=== PATIENT | female | born 1970 | race African-American/Black ===

== ENCOUNTER 2016-12-10 13:52 | Emergency (ER) | payer OTHER ==
[2016-12-10 14:10] VITALS: BP 189/126; PULSE 74; TEMP 97.5; BMI 50.3
--- NOTE | 2016-12-10 15:19 | PDOC ---
History of Present Illness - General Chief Complaint: Sore Throat Stated Complaint: SORE THROAT Time Seen by Provider: 12/10/16 14:20 - History of Present Illness Initial Comments: 12/10/16 14:58 CHIEF COMPLAINT: throat pain HISTORY OF PRESENT ILLNESS: 46-year-old female with history of asthma and hypertension presents to [facility] with throat pain 1 month. Patient states that he was started on hydrochlorothiazide a month ago by her primary care doctor and then was seen at [facility] 2 days ago for this sore throat. Patient states she was swabbed for strep and was told that she would be called if the results were positive; the patient did not receive a call. Patient also states that she was seen by her dentist 2 days ago after "getting work done "and was prescribed penicillin 3 times daily for 1 week. Patient states that she does not have any difficulty speaking or breathing" but she feels irritation to her throat after swallowing pills. She denies any fever, chills, nausea, vomiting, diarrhea. No recent travel or sick contacts. PAST MEDICAL HISTORY: Denies past medical history FAMILY HISTORY: Denies SOCIAL HISTORY: Former smoker. Denies alcohol, illicit drug use. SURGICAL HISTORY: Denies ALLERGIES: No known drug allergies REVIEW OF SYSTEMS General/Constitutional: Denies fever or chills. Denies weakness, weight change. HEENT: "My throat feels irritated after swallowing pills." Denies change in vision. Denies ear pain or discharge. Cardiovascular: Denies chest pain or shortness of breath. Respiratory: Denies cough, wheezing, or hemoptysis. Gastrointestinal: Denies nausea, vomiting, diarrhea or constipation. Denies rectal bleeding. Genitourinary: Denies dysuria, frequency, or change in urination. Musculoskeletal: Denies joint or muscle swelling or pain. Denies neck or back pain. Skin and breasts: Denies rash or easy bruising. PHYSICAL EXAM General Appearance: Well-appearing, appropriately dressed. No apparent distress. HEENT: No swelling or erythema to pharynx, tonsils, uvula, lips, tongue, mouth. EOMI, PERRLA, normal ENT inspection, normal voice, TMs normal, pharynx normal. No conjunctival pallor. No photophobia, scleral icterus. Neck: Supple. Trachea midline. No tenderness, rigidity, carotid bruit, stridor , lymphadenopathy, or thyromegaly. Respiratory/Chest: Lungs CTAB. Cardiovascular: RRR. S1, S2. Musculoskeletal/Extremities: Normal inspection. FROM of all extremities, normal capillary refill. Integumentary: Appropriate color, dry, warm. No cyanosis, erythema, jaundice or rash Neurologic: business controller II-XII intact. Fully oriented, alert. Appropriate mood/affect. No appreciable EOM palsy, facial droop or sensory deficit. Past History - Past Medical History Allergies/Adverse Reactions: Allergies Allergy/AdvReac Type Severity Reaction Status Date / Time No Known Allergies Allergy Verified 12/10/16 14:02 Home Medications: Ambulatory Orders Hydrochlorothiazide [Hctz -] 12.5 mg PO DAILY 12/10/16 Asthma: Yes HTN: Yes - Psycho/Social/Smoking Cessation Hx Suicidal Ideation: No Smoking History: Former smoker Have you smoked in the past 12 months: No Information on smoking cessation initiated: No *Physical Exam - Vital Signs Last Vital Signs Temp Pulse Resp BP Pulse Ox 97.5 F L 74 19 189/126 98 12/10/16 14:02 12/10/16 14:02 12/10/16 14:02 12/10/16 14:02 12/10/16 14:02 Medical Decision Making - Medical Decision Making 12/10/16 15:02 46-year-old female with history of asthma and hypertension presents to [facility] with throat irritation 1 month. Patient was swabbed for strep at [facility] and is currently taking PCN 500 mg TID. Discussed with patient that she has elevated BP; patient states "that's because I don't like hospitals and I always get really nervous when I come here. I also did not take my medication this morning." Reassured patient that it will take a few days for medication to start working and that temporary discomfort to throat s/p taking pills is common and not harmful. Advised patient to continue taking medications, follow up with PMD this week for further management of HTN, and advised patient of signs and symptoms for return to ER. Patient verbalized understanding and agrees to plan. *DC/Admit/Observation/Transfer Diagnosis at time of Disposition: Throat discomfort Hypertension Qualifiers: Hypertension type: unspecified secondary hypertension Qualified Code(s): I15.9 - Secondary hypertension, unspecified; I15 - Secondary hypertension - Discharge Dispostion Disposition: HOME Condition at time of disposition: Stable Admit: No - Referrals Referrals: Alfredito Cnadelaria MD [Staff Physician] - - Patient Instructions Printed Discharge Instructions: Sore Throat, High Blood Pressure Additional Instructions: Please continue taking your antibiotics as prescribed. You may take ibuprofen as directed by your dentist for fever or discomfort. You have been provided a referral to ear, nose, and throat doctor, please make an appointment for this week for further evaluation your throat discomfort continues. You MUST see your primary care doctor in the next week for further evaluation and management of your blood pressure. As discussed, if you develop any difficulty speaking, swallowing, breathing, or swelling of the lips, mouth, throat, tongue, or any new or worsening symptoms, please return to the ER immediately.
== END 2016-12-10 15:25 | disposition home or self-care (01) ==
LOC: JERFT 13:52
DX: R07.0 Pain in throat (principal); I10 Essential (primary) hypertension; J45.909 Unspecified asthma, uncomplicated
CPT/HCPCS: 99281-25

== ENCOUNTER 2017-01-16 06:48 | Emergency (ER) | payer OTHER ==
[2017-01-16 07:03] VITALS: TEMP 97.4; BMI 50.0
--- NOTE | 2017-01-16 07:39 | PDOC ---
History of Present Illness - General Chief Complaint: Asthma Stated Complaint: ASTHMA Time Seen by Provider: 01/16/17 07:26 History Source: Patient Exam Limitations: No Limitations - History of Present Illness Initial Comments: 46 AA F with h/o asthma never intubated not on steroid and HTN on HCTZ presented to the ED with cold symptoms x 1 week. She was seen at [facility] and was treated with duoneb and prednisone but symptoms still persist, which include productive cough with white sputum, throat pain, abd muscle pain and shortness of breath at times. Her kids at home also have similar symptoms. But patient denies recent travel, fever, chills, chest pain, n/v, headache, diarrhea , dysuria. Timing/Duration: reports: intermittent Severity: reports: mild Modifying Factors: improves with: albuterol nebulizer Associated Symptoms: reports: cough, muscle aches, shortness of breath, sore throat. denies: fever/chills Past History - Travel Traveled outside of the country in the last 30 days: No Close contact w/someone who was outside of country & ill: No - Past Medical History Allergies/Adverse Reactions: Allergies Allergy/AdvReac Type Severity Reaction Status Date / Time No Known Allergies Allergy Verified 01/16/17 07:01 Home Medications: Ambulatory Orders Hydrochlorothiazide [Hctz -] 12.5 mg PO DAILY 12/10/16 Prednisone [Deltasone -] 60 mg PO DAILY #5 tablet 01/16/17 Asthma: Yes HTN: Yes - Psycho/Social/Smoking Cessation Hx Suicidal Ideation: No Smoking History: Never smoked Have you smoked in the past 12 months: No Information on smoking cessation initiated: No Hx Alcohol Use: No Drug/Substance Use Hx: No Substance Use Type: None Review of Systems - Review of Systems Able to Perform ROS?: Yes Is the patient limited Palestinian proficient: No Constitutional: No: Chills, Fever HEENTM: Yes: Throat Pain. No: Ear Discharge Respiratory: Yes: Cough, Shortness of Breath, Productive cough Cardiac (ROS): No: Chest Pain ABD/GI: No: Abdominal Distended, Constipated, Diarrhea, Nausea, Vomiting : No: Dysuria Musculoskeletal: Yes: Muscle Pain *Physical Exam - Vital Signs Last Vital Signs Temp Pulse Resp BP Pulse Ox 97.4 F L 98 H 18 162/99 100 01/16/17 07:02 01/16/17 07:02 01/16/17 07:02 01/16/17 07:02 01/16/17 07:15 - Physical Exam General Appearance: No: Apparent Distress HEENT: negative: Pale Conjunctivae, Pharyngeal Erythema, Tonsillar Exudate, Tonsillar Erythema, Nasal Congestion, Sinus Tenderness Neck: positive: Trachea midline, Supple Respiratory/Chest: positive: Lungs Clear, Normal Breath Sounds. negative: Crackles, Rales, Rhonchi, Wheezing Cardiovascular: positive: Regular Rhythm, S1, S2, Tachycardia Gastrointestinal/Abdominal: positive: Soft. negative: Tender, Distended, Guarding, Rebound, Tenderness Extremity: negative: Tender, Swelling Medical Decision Making - Medical Decision Making 01/16/17 07:49 Likely bronchitis upon assessment. Will give 2 duoneb treatment and predisone in ED 01/16/17 09:39 EKG is unremarkable, patient is feeling better, will discharge the patient with predisone 60mg x 5 days *DC/Admit/Observation/Transfer Diagnosis at time of Disposition: Bronchitis - Discharge Dispostion Disposition: HOME Condition at time of disposition: Stable Admit: No - Prescriptions Prescriptions: Prednisone [Deltasone -] 60 mg PO DAILY #5 tablet - Referrals Referrals: Rosalinda Guerra [Primary Care Provider] - - Patient Instructions Printed Discharge Instructions: Asthma -- Adult, DI for Chronic Bronchitis Additional Instructions: Please take predisone as instructed and continue to use albuterol as needed for your asthma. Visit the nearest Emergency Room if the symptoms worsen. - Post Discharge Activity Work/School Note: Back to Work
[2017-01-16] MEDS ORDERED: predniSONE 20 MG TABLET (UD) PO ONE (07:45)
[2017-01-16] MEDS ORDERED: ALBUTEROL SO4 2.5/IPRATROPIUM 0.5 INH SOL 3 ML VIAL.NEB. NEB ONE ×2 (07:53→08:43)
[2017-01-16] MEDS: ALBUTEROL SO4 2.5/IPRATROPIUM 0.5 INH SOL 3 ML VIAL.NEB. NEB SCH ×2 (08:00→08:42)
--- NOTE | 2017-01-16 08:54 | PDOC ---
Attending Attestation - Resident Resident Name: Dominic Bedoya - ED Attending Attestation I have performed the following: I have examined & evaluated the patient, The case was reviewed & discussed with the resident, I agree w/resident's findings & plan, Exceptions are as noted - HPI HPI: 01/16/17 08:54 46-year-old female with history of mild intermittent asthma presents for evaluation of persistent cough for the last week. Positive nasal and chest congestion with cough productive of white phlegm, no fevers or chills. Was seen at [facility] ER last week, a chest x-ray was reportedly normal and she was given nebulizers and steroids with a prescription upon discharge but the pharmacy never received it so she presents for reevaluation. - Physicial Exam PE: 01/16/17 08:55 Afebrile. O2 sat normal. Well-appearing. Occasional expiratory wheeze only with cough, otherwise good air entry without inspiratory or expiratory wheezing or prolonged expiration. No leg edema - Medical Decision Making 01/16/17 08:56 Patient seen and evaluated with the resident. I agree with the overall evaluation, assessment, and management with the following summary of visit: 46-year-old female with likely viral bronchitis, mild asthma exacerbation. Recently normal chest x-ray, low suspicion for pneumonia given one week of symptoms and no fever. no indication for repeat CXR trial of nebulizer, will benefit from course of steroids so will resend to the pharmacy well appearing without respiratory distress, anticipate discharge. Heart Score/ECG Review #1 General ECG Interpretation: Sinus Rhythm, Normal Rate, Normal Intervals, No acute ischemic changes
[2017-01-16 09:47] VITALS: BP 150/80; PULSE 80
--- NOTE | 2017-01-16 15:06 | EKG ---
Test Reason : Blood Pressure : / mmHG Vent. Rate : 084 BPM Atrial Rate : 084 BPM P-R Int : 142 ms QRS Dur : 078 ms QT Int : 376 ms P-R-T Axes : 061 049 031 degrees QTc Int : 444 ms NORMAL SINUS RHYTHM WITH SINUS ARRHYTHMIA NORMAL ECG NO PREVIOUS ECGS AVAILABLE Confirmed by TANI BADILLO MD ([id number]) on 01/16/2017 3:05:28 PM Referred By: Confirmed By:TANI BADILLO MD
== END 2017-01-16 09:48 | disposition home or self-care (01) ==
LOC: JER 06:48
PROC: 3E0F7GC Introduction of Other Therapeutic Substance into Respiratory Tract, Via Natural or Artificial Opening (ICD-10-PCS; principal; 2017-01-16)
DX: J40 Bronchitis, not specified as acute or chronic (principal); J45.909 Unspecified asthma, uncomplicated; I10 Essential (primary) hypertension
CPT/HCPCS: 93005; 93010; 99283-25

== ENCOUNTER 2017-03-19 07:25 | Emergency (ER) | payer OTHER ==
[2017-03-19 07:45] VITALS: BP 150/86; PULSE 86; TEMP 99.1
--- NOTE | 2017-03-19 08:51 | PDOC ---
History of Present Illness - General Chief Complaint: Sore Throat Stated Complaint: SORE THROAT, TOOTHACHE Time Seen by Provider: 03/19/17 08:08 History Source: Patient Exam Limitations: No Limitations - History of Present Illness Initial Comments: 03/19/17 08:37 My chief complaint: Sore throat, toothache History of present illness: Patient is a 46-year-old female with a history of hypertension/asthma here today complaining of a sore throat 2 days and upper tooth discomfort and dry cough. Patient reports that she supposed to have some dental work on her left upper molar teeth. Patient does not have any facial swelling. Patient reports that her children have been sick with sore throat and cough. Patient denies any difficulty breathing or swallowing. Patient denies any nausea vomiting or diarrhea. Pt. reports discomfort left upper teeth discomfort, does now want anything for pain presently. 03/19/17 09:01 03/19/17 09:19 Timing/Duration: getting worse Severity: mild Associated Symptoms: reports: cough (dry ), other (sore throat, cough, left upper teeth discomfort) Past History - Past Medical History Allergies/Adverse Reactions: Allergies Allergy/AdvReac Type Severity Reaction Status Date / Time amoxicillin AdvReac Verified 03/19/17 07:34 Home Medications: Ambulatory Orders Azithromycin [Zithromax 250mg Tablets -] 250 mg PO UTDICT #6 tab 03/19/17 Guaifenesin Dm [Mucinex Dm -] 1 - 2 tablet PO Q12H PRN #20 tab.er.12h MDD 4 Ibuprofen 600 mg PO Q6H PRN #18 tablet MDD 4 03/19/17 Asthma: Yes HTN: Yes - Psycho/Social/Smoking Cessation Hx Anxiety: No Suicidal Ideation: No Smoking History: Never smoked Have you smoked in the past 12 months: No Hx Alcohol Use: No Drug/Substance Use Hx: No Substance Use Type: None Review of Systems - Review of Systems Able to Perform ROS?: Yes Constitutional: No: Symptoms Reported HEENTM: Yes: Throat Pain, Dental Problems (left upper molar discomfort ) Respiratory: Yes: Cough. No: Shortness of Breath, SOB with Exertion, SOB at Rest, Stridor, Wheezing, Productive cough Cardiac (ROS): No: Symptoms Reported Musculoskeletal: No: Symptoms Reported Integumentary: No: Symptoms Reported Neurological: No: Symptoms reported *Physical Exam - Vital Signs Last Vital Signs Temp Pulse Resp BP Pulse Ox 99.1 F 86 20 150/86 100 03/19/17 07:30 03/19/17 07:30 03/19/17 07:30 03/19/17 07:30 03/19/17 07:30 - Physical Exam General Appearance: Yes: Appropriately Dressed HEENT: positive: TMs Normal, Pharyngeal Erythema, Tonsillar Erythema (with no uvular deviation ), Other (no surrounding edema of gum left upper molar, some discomfort when tapping teeth with tongue blade). negative: Tonsillar Exudate Neck: negative: Lymphadenopathy (R), Lymphadenopathy (L), Rigidity Respiratory/Chest: positive: Lungs Clear, Normal Breath Sounds. negative: Respiratory Distress Cardiovascular: positive: Regular Rhythm, Regular Rate, S1, S2 Integumentary: positive: Normal Color Neurologic: positive: Alert, Normal Response, Responsive Medical Decision Making - Medical Decision Making 03/19/17 09:04 Patient is a 46-year-old female with a history of hypertension/asthma here today complaining of a sore throat 2 days and upper tooth discomfort and dry cough. Patient reports that she supposed to have some dental work on her left upper molar teeth. Patient does not have any facial swelling. Patient reports that her children have been sick with sore throat and cough. Patient denies any difficulty breathing or swallowing. Patient denies any nausea vomiting or diarrhea. Pt. reports discomfort left upper teeth discomfort, does now want anything for pain presently. Left upper teeth discomfort pharyngitis cough PLAN: throat C & S negative azithromycin 250 mg 2 tabs today than one daily for following 4 days Mucinex DM 1 -2 tabs q 12 hr prn cough Ibuprofen 600 mg po every 6 hrs prn pain 03/19/17 09:20 *DC/Admit/Observation/Transfer Diagnosis at time of Disposition: Pain due to dental caries, Cough Pharyngitis Qualifiers: Pharyngitis/tonsillitis etiology: unspecified etiology Qualified Code(s): J02.9 - Acute pharyngitis, unspecified - Discharge Dispostion Disposition: HOME Condition at time of disposition: Stable - Prescriptions Prescriptions: Ibuprofen 600 mg PO Q6H PRN #18 tablet MDD 4 PRN Reason: Pain Guaifenesin Dm [Mucinex Dm -] 1 - 2 tablet PO Q12H PRN #20 tab.er.12h MDD 4 PRN Reason: Cough Azithromycin [Zithromax 250mg Tablets -] 250 mg PO UTDICT #6 tab - Referrals Referrals: Rosalinda Guerra [Primary Care Provider] - - Patient Instructions Additional Instructions: Follow up with your dentist this week or go to [employer] [facility] for sure given to you has full information Return to emergency room if symptoms worsen any difficulty swallowing or breathing Follow Up with your primary care provider within the next few days for follow-up Rest and drink a lot a fluids Avoid extremely hot or cold foods Patient voiced understanding of discharge instructions and all questions were answered
== END 2017-03-19 09:47 | disposition home or self-care (01) ==
LOC: JER 07:25 → JERFT 07:25
DX: J02.9 Acute pharyngitis, unspecified (principal); K02.9 Dental caries, unspecified; I10 Essential (primary) hypertension; J45.909 Unspecified asthma, uncomplicated
CPT/HCPCS: 87070; 87430; 99281-25

== ENCOUNTER 2017-04-02 05:07 | Emergency (ER) | payer OTHER ==
[2017-04-02 05:34] VITALS: BP 125/78; PULSE 85; TEMP 97.8; BMI 49.5
--- NOTE | 2017-04-02 05:49 | PDOC ---
History of Present Illness - General Chief Complaint: Vaginal Sxs Stated Complaint: VAGINAL ITCHING Time Seen by Provider: 04/02/17 05:24 History Source: Patient Exam Limitations: No Limitations - History of Present Illness Travel History: No Initial Comments: 04/02/17 05:44 46yo Female patient w/ PmHx: HTN, Asthma presents to ED c/o vaginal itching with white discharge. Patient states 1 week ago she changed her laundry detergent, 3 days later she began experiencing irritation in vaginal area. Patient denies urinary symptoms, fever, n/v/d, DM, or any other complaints at this time. Timing/Duration: reports: getting worse Quality: reports: moderate Abdominal Pain Onset Location: denies: RUQ, LUQ, RLQ, LLQ, epigastric, periumbilical, suprapubic, generalized abdomen, flank, unknown, other Pain Radiation: denies: no radiation, RUQ, LUQ, RLQ, LLQ, epigastric, periumbilical, flank, groin, scapula, shoulder, chest, back, other Activities at Onset: denies: none, exertion, emotional upset, rest, sleep, no specific activity, eating, working, sexual intercourse, other Treatment Prior to Arrive: worse with: analgesics, antacids, cold pack, heat, laxative, enema, other Aggravating Factors: worse with: None, Defecation, Eating, Emotional upset, Exertion, [place], Movement, Voiding, Change in position Alleviating Factors: worse with: None, Belching, Shallow Breathing, Defecation, Eating, Holding Breath, Passing Gas, Change in Position, Rest, Voiding, Vomiting Past History - Travel Traveled outside of the country in the last 30 days: No Close contact w/someone who was outside of country & ill: No - Past Medical History Allergies/Adverse Reactions: Allergies Allergy/AdvReac Type Severity Reaction Status Date / Time amoxicillin AdvReac Verified 04/02/17 05:28 Home Medications: Ambulatory Orders Albuterol 0.083% Nebulizer Alanis [Ventolin 0.083%] 1 neb NEB QID PRN 04/02/17 Cephalexin Monohydrate [Keflex -] 500 mg PO BID #20 capsule 04/02/17 Fluconazole [Diflucan -] 50 mg PO ONCE #1 tablet 04/02/17 Fluconazole [Diflucan -] 100 mg PO ONCE #1 tablet 04/02/17 Hydrochlorothiazide [Hctz -] 12.5 mg PO DAILY 04/02/17 Asthma: Yes HTN: Yes - Psycho/Social/Smoking Cessation Hx Anxiety: No Suicidal Ideation: No Smoking History: Never smoked Have you smoked in the past 12 months: No Information on smoking cessation initiated: No Hx Alcohol Use: No Drug/Substance Use Hx: No Substance Use Type: None Abd/GI Specific PMHX - Complaint Specific PMHX Colitis: No Diverticulitis: No Gall Bladder Disease: No GERD: No Hepatitis: No Irritable Bowel Synd (IBS): No Pancreatitis: No GI Ulcer Disease: No Review of Systems - Review of Systems Able to Perform ROS?: Yes Is the patient limited Syrian proficient: No Constitutional: No: Chills, Fever Respiratory: No: Cough, Shortness of Breath, Stridor, Wheezing Cardiac (ROS): No: Chest Pain, Palpitations, Syncope ABD/GI: No: Constipated, Diarrhea, Nausea, Poor Appetite, Poor Fluid Intake, Vomiting, Abdominal cramping : Yes: Discharge, Other (Vaginal itching). No: Burning, Dysuria, Frequency, Hematuria, Pain, Urgency Musculoskeletal: No: Back Pain Integumentary: No: Bruising, Dryness, Erythema, Rash All Other Systems: Reviewed and Negative *Physical Exam - Vital Signs Last Vital Signs Temp Pulse Resp BP Pulse Ox 97.8 F 85 18 125/78 98 04/02/17 05:26 04/02/17 05:26 04/02/17 05:26 04/02/17 05:26 04/02/17 05:26 - Physical Exam General Appearance: Yes: Nourished, Appropriately Dressed. No: Apparent Distress, Mild Distress, Moderate Distress, Severe Distress Neck: positive: Trachea midline, Supple. negative: Stridor, Lymphadenopathy (R) , Lymphadenopathy (L) Respiratory/Chest: positive: Lungs Clear, Normal Breath Sounds. negative: Chest Tender, Respiratory Distress, Accessory Muscle Use, Labored Respiration, Rapid RR Cardiovascular: positive: Regular Rhythm, Regular Rate Female Pelvic Exam: positive: other (Patient deferred) Gastrointestinal/Abdominal: positive: Normal Bowel Sounds, Soft. negative: Distended, Guarding, Rebound, Tenderness Musculoskeletal: positive: Normal Inspection. negative: CVA Tenderness Extremity: positive: Normal Capillary Refill, Normal Inspection, Normal Range of Motion. negative: Pedal Edema, Swelling, Calf Tenderness, Erythema Integumentary: positive: Normal Color, Dry, Warm Neurologic: positive: hand mexican food maker II-XII NML intact, Fully Oriented, Alert, Normal Mood/ Affect, Normal Response, Motor Strength 5/5 *DC/Admit/Observation/Transfer Diagnosis at time of Disposition: Infection due to yeast Urinary tract infection Qualifiers: Urinary tract infection type: urethritis Qualified Code(s): N34.2 - Other urethritis - Discharge Dispostion Disposition: HOME Condition at time of disposition: Fair Admit: No - Prescriptions Prescriptions: Fluconazole [Diflucan -] 100 mg PO ONCE #1 tablet Fluconazole [Diflucan -] 50 mg PO ONCE #1 tablet Cephalexin Monohydrate [Keflex -] 500 mg PO BID #20 capsule - Patient Instructions Printed Discharge Instructions: Urinary Tract Infection, DI for Vaginal Yeast Infection Additional Instructions: FOLLOW UP WITH YOUR PRIMARY CARE PROVIDER. TAKE MEDICATIONS PRESCRIBED. YOU HAVE BEEN PROVIDED WITH AN EXTRA DOSE OF DIFLUCAN FOR YEAST INFECTION IF SYMPTOMS DO NOT SUBSIDED. IF YOU COMPLETE ALL MEDICATIONS AND SYMPTOMS CONTINUE OR GET WORSE DURING TREATMENT, RETURN FOR FURTHER EVALUATION. Print Language: INDONESIAN
[2017-04-02 06:05] LABS: URINE APPEARANCE SLCLOUDY; URINE BILIRUBIN NEGATIVE (NEGATIVE); URINE BLOOD NEGATIVE (NEGATIVE); URINE COLOR YELLOW; URINE GLUCOSE (UA) NEGATIVE (NEGATIVE); URINE KETONE NEGATIVE (NEGATIVE); URINE NITRITE NEGATIVE (NEGATIVE); URINE PROTEIN NEGATIVE (NEGATIVE); URINE UROBILINOGEN 2.0 E.U/dl E.U./dl (0.2-1.0)
[2017-04-02 06:16] LABS: URINE LEUK ESTERASE 3+ (NEGATIVE)
[2017-04-02 06:22] LABS: URINE BACTERIA RARE /hpf (NONE SEEN); URINE HYALINE CAST 1 /lpf; URINE MUCUS RARE; URINE RBC 1 /hpf (0-3); URINE WBC 4 /hpf (3-5)
[2017-04-02] MEDS ORDERED: FLUCONAZOLE 100 MG TABLET (UD) PO ONE (06:24)
[2017-04-02] MEDS ORDERED: CEPHALEXIN MONOHYDRATE 500 MG CAPSULE (UD) PO ONE (06:24)
[2017-04-02] MEDS ORDERED: FLUCONAZOLE 100 MG TABLET (UD) ONE (06:34)
[2017-04-02] MEDS ORDERED: CEPHALEXIN MONOHYDRATE 250 MG CAPSULE (FP) ONE (06:34)
== END 2017-04-02 06:29 | disposition home or self-care (01) ==
LOC: JER 05:07
DX: B37.3 Candidiasis of vulva and vagina (principal); N34.2 Other urethritis; I10 Essential (primary) hypertension; J45.909 Unspecified asthma, uncomplicated
CPT/HCPCS: 81003; 81015; 84703; 87086; 99281-25

== ENCOUNTER 2017-04-22 09:04 | Emergency (ER) | payer OTHER ==
[2017-04-22 09:13] VITALS: BP 161/94; PULSE 79; TEMP 98.5; BMI 48.6
--- NOTE | 2017-04-22 09:35 | PDOC ---
History of Present Illness - General Chief Complaint: Toothache Stated Complaint: TOOTHACHE Time Seen by Provider: 04/22/17 09:18 History Source: Patient Exam Limitations: No Limitations - History of Present Illness Initial Comments: 04/22/17 09:35 Patient is a 46-year-old female history of hypertension and asthma currently on hydrochlorothiazide and Ventolin as needed presents emergency Department with pain to left third of the molar. Patient reports that she has been getting dental work done, went to complete the work and found that the dentist had closed down went to another dentist who states he cannot continue work because the other dentists was already paid for by her insurance. Patient states the dentist informed her to come to emergency department for pain medication and antibiotics for her dental pain. Allergies: Amlodipine, amoxicillin Medications: See medication list Family History: Non-contributory Social History: Denies smoking, alcohol use, or IVDU Review of Systems GENERAL/CONSTITUTIONAL: No fever or chills. No weakness. No weight change. HEAD, EYES, EARS, NOSE AND THROAT: No change in vision. No ear pain or discharge. No sore throat. Pain to the gumline of the left upper third molar CARDIOVASCULAR: No chest pain or shortness of breath. RESPIRATORY: No cough, wheezing, or hemoptysis. GASTROINTESTINAL: No nausea, vomiting, diarrhea or constipation. No rectal bleeding. GENITOURINARY: No dysuria, frequency, or change in urination. MUSCULOSKELETAL: No joint or muscle swelling or pain. No neck or back pain. SKIN : No rash or easy bruising. NEUROLOGIC: No headache, vertigo, loss of consciousness, or loss of sensation. HEMATOLOGIC/LYMPHATIC: No anemia, easy bleeding, or history of blood clots. No lymphadenopathy ALLERGIC/IMMUNOLOGIC: No hives or skin allergy. No latex allergy. Physical Exam: GENERAL: The patient is awake, alert, and fully oriented, in no acute distress. HEAD: Normal with no signs of trauma. No facial swelling. EYES: Pupils equal, round and reactive to light, extraocular movements intact, sclera anicteric, conjunctiva clear. ENT: Ears normal, nares patent, oropharynx clear without exudates. Moist mucous membranes. No uvula deviation. No erythema, or edema to the gumline of the left third upper molar. No visible abscess. NECK: Normal range of motion, supple without lymphadenopathy, JVD, or masses. LUNGS: Breath sounds equal, clear to auscultation bilaterally. No wheezes, and no crackles. HEART: Regular rate and rhythm, normal S1 and S2 without murmur, rub or gallop. ABDOMEN: Soft, nontender, normoactive bowel sounds. No guarding, no rebound. No masses. No bruising or abrasions MUSCULOSKELETAL: Normal range of motion, no edema. No clubbing or cyanosis. No cords, erythema, or tenderness. No CVA Tenderness with fist. NEUROLOGICAL: Cranial nerves II through XII grossly intact. Normal speech, normal gait. SKIN: Warm, Dry, normal turgor, no rashes or lesions noted. No erythema or edema. Past History - Past Medical History Allergies/Adverse Reactions: Allergies Allergy/AdvReac Type Severity Reaction Status Date / Time amlodipine Allergy Intermediate Difficulty Verified 04/22/17 09:08 Breathing amoxicillin AdvReac Verified 04/22/17 09:07 Home Medications: Ambulatory Orders Hydrochlorothiazide [Hctz -] 12.5 mg PO DAILY 04/02/17 Albuterol Sulfate Inhaler - [Ventolin HFA Inhaler -] 2 inh PO Q6H PRN 04/22/17 Clindamycin [Cleocin -] 300 mg PO TID #21 capsule 04/22/17 Oxycodone HCl/Acetaminophen [Percocet 5-325 mg Tablet] 1 tab PO Q6H #16 tablet MDD 4 04/22/17 Salmeterol/Fluticasone [Advair 500Mcg/50Mcg -] 1 inh PO BID 04/22/17 Asthma: Yes HTN: Yes - Psycho/Social/Smoking Cessation Hx Anxiety: No Suicidal Ideation: No Smoking History: Never smoked Have you smoked in the past 12 months: No Hx Alcohol Use: No Drug/Substance Use Hx: No Substance Use Type: None *Physical Exam - Vital Signs Last Vital Signs Temp Pulse Resp BP Pulse Ox 98.5 F 79 17 161/94 98 04/22/17 09:08 04/22/17 09:08 04/22/17 09:08 04/22/17 09:08 04/22/17 09:08 Medical Decision Making - Medical Decision Making 04/22/17 09:41 A/P: Patient with dental pain. Because patient has been having dental work performed and is unable to complete it, patient at high risk for abscess development, there is no visible abscess however patient with subjective pain and states that recommend antibiotics at this time. Will DC patient on clindamycin and Percocet as needed for pain, strict follow-up with dental patient states she has to call her insurance because there are refusing to pay for completion of dental work. Patient will follow-up. *DC/Admit/Observation/Transfer Diagnosis at time of Disposition: Pain, dental - Discharge Dispostion Disposition: HOME Condition at time of disposition: Good Admit: No - Prescriptions Prescriptions: Clindamycin [Cleocin -] 300 mg PO TID #21 capsule Oxycodone HCl/Acetaminophen [Percocet 5-325 mg Tablet] 1 tab PO Q6H #16 tablet MDD 4 - Referrals Referrals: Nyla Guidry NP [Primary Care Provider] - - Patient Instructions - Post Discharge Activity
== END 2017-04-22 09:49 | disposition home or self-care (01) ==
LOC: JERFT 09:04
DX: K08.89 Other specified disorders of teeth and supporting structures (principal); I10 Essential (primary) hypertension; J45.909 Unspecified asthma, uncomplicated
CPT/HCPCS: 99281-25

== ENCOUNTER 2017-05-02 14:05 | Emergency (ER) | payer OTHER ==
[2017-05-02 14:15] VITALS: BP 186/90; PULSE 73; TEMP 98.4; BMI 48.7
--- NOTE | 2017-05-02 15:24 | PDOC ---
History of Present Illness - General History Source: Patient Exam Limitations: No Limitations - History of Present Illness Initial Comments: 05/02/17 15:25 The patient is a 46 year old female with a significant past medical history of asthma and hypertension who presents to the ED with complaints of shoulder pain since earlier today. Patient reports she is in the process of moving and was lifting heavy boxes. She states she feels like she pulled her left shoulder secondary to lifting the heavy boxes. She reports nonradiating left shoulder pain that is worsened with abduction. Denies focal numbness, weakness, or tingling. Denies any other symptoms. <Ciera Cao - Last Filed: 05/02/17 15:24> <Елена Walsh - Last Filed: 05/02/17 16:02> - General Chief Complaint: Pain, Acute Stated Complaint: PAIN Time Seen by Provider: 05/02/17 14:51 Past History <Ciera Cao - Last Filed: 05/02/17 15:24> - Past Medical History Asthma: Yes HTN: Yes - Psycho/Social/Smoking Cessation Hx Anxiety: No Suicidal Ideation: No Smoking History: Never smoked Have you smoked in the past 12 months: No Hx Alcohol Use: No Drug/Substance Use Hx: No Substance Use Type: None <Елена Walsh - Last Filed: 05/02/17 16:02> - Past Medical History Allergies/Adverse Reactions: Allergies Allergy/AdvReac Type Severity Reaction Status Date / Time amlodipine Allergy Intermediate Difficulty Verified 05/02/17 14:08 Breathing amoxicillin AdvReac Verified 05/02/17 14:08 Home Medications: Ambulatory Orders Hydrochlorothiazide [Hctz -] 12.5 mg PO DAILY 04/02/17 Albuterol Sulfate Inhaler - [Ventolin HFA Inhaler -] 2 inh PO Q6H PRN 04/22/17 Oxycodone HCl/Acetaminophen [Percocet 5-325 mg Tablet] 1 tab PO Q6H #16 tablet MDD 4 04/22/17 Salmeterol/Fluticasone [Advair 500Mcg/50Mcg -] 1 inh PO BID 04/22/17 Ibuprofen [Motrin -] 600 mg PO QID #28 tablet 05/02/17 Review of Systems - Review of Systems Able to Perform ROS?: Yes Musculoskeletal: Yes: Other (left shoulder pain ) All Other Systems: Reviewed and Negative <Ciera Cao - Last Filed: 05/02/17 15:24> *Physical Exam - Vital Signs Last Vital Signs Temp Pulse Resp BP Pulse Ox 98.4 F 73 18 186/90 100 05/02/17 14:08 05/02/17 14:08 05/02/17 14:08 05/02/17 14:08 05/02/17 14:08 - Physical Exam Comments: 05/02/17 15:25 GENERAL: Well-appearing, well-nourished. No apparent distress. HEENT: Normocephalic, atraumatic. PERRL, EOM intact. CARDIOVASCULAR: Normal S1, S2. Regular rate and rhythm. PULMONARY: Clear to auscultation bilaterally. ABDOMEN: Soft, non-distended, non-tender. EXTREMITIES: + Pain to left lateral shoulder over the deltoid on palpation, no palpable abnormality. Left shoulder pain on abduction Normal ROM in all four extremities. No gross deformities. SKIN: Warm, dry. No rash NEUROLOGICAL: No focal neurological deficits. Normal gait. <Ciera Cao - Last Filed: 05/02/17 15:24> - Vital Signs Last Vital Signs Temp Pulse Resp BP Pulse Ox 98.4 F 73 18 186/90 100 05/02/17 14:08 05/02/17 14:08 05/02/17 14:08 05/02/17 14:08 05/02/17 14:08 <Елена Walsh - Last Filed: 05/02/17 16:02> Medical Decision Making - Medical Decision Making 05/02/17 15:57 A/P: Patient with left shoulder pain clinical signs of her bursitis. X-ray, x- ray read negative for fracture or visible injury. Arm immobilizer placed on patient will be discharged on Motrin to follow-up with orthopedics in 1 week pain persists <Елена Walsh - Last Filed: 05/02/17 16:02> *DC/Admit/Observation/Transfer - Attestations Scribe Attestion: 05/02/17 15:25 Documentation prepared by Ciera Cao, acting as medical secretary receptionist for Emergency Dept <Ciera Cao - Last Filed: 05/02/17 15:24> - Discharge Dispostion Admit: No <Елена Walsh - Last Filed: 05/02/17 16:02> Diagnosis at time of Disposition: Shoulder pain Qualifiers: Chronicity: acute Laterality: left Qualified Code(s): M25.512 - Pain in left shoulder - Discharge Dispostion Disposition: HOME Condition at time of disposition: Good - Prescriptions Prescriptions: Ibuprofen [Motrin -] 600 mg PO QID #28 tablet - Patient Instructions Printed Discharge Instructions: Shoulder Tendinopathy Additional Instructions: Please refrain from lifting anything greater than 10 pounds, follow-up with orthopedics in one week if pain persists. For now please keep arm immobilizer on and anti-inflammatories for pain, ice to shoulder.
== END 2017-05-02 16:09 | disposition home or self-care (01) ==
LOC: JERFT 14:05
DX: M25.512 Pain in left shoulder (principal); X50.0XXA Overexertion from strenuous movement or load, initial encounter; X50.9XXA Other and unspecified overexertion or strenuous movements or postures, initial encounter; Y93.E6 Activity, residential relocation; Y92.038 Other place in apartment as the place of occurrence of the external cause; Y99.8 Other external cause status; I10 Essential (primary) hypertension; J45.909 Unspecified asthma, uncomplicated
CPT/HCPCS: 73030-TC-LT; 99281-25